=== PATIENT | female | born 1995 | race Caucasian/White ===

== ENCOUNTER 2016-12-04 14:46 | Emergency (ER) | payer OTHER ==
--- NOTE | 2016-12-04 15:42 | ED NURSING NOTES ---
Clinical Report - Nurses [facility] [address] [place] [address] 12/04/2016 14:48 Patient: ARIAN RAMESH TRIAGE Triage time 14:58. Acuity: LEVEL 4. Chief Complaint: LACERATION and (beer can). Alert. No acute distress. ( Pt. states she was trying to remove a beer cap with her radiology services manager and cut her finger.). SEPSIS SCREEN: Sepsis Screen. Negative (no infection suspected/documented). VONDA COMA SCORE: [place] Coma Scale: 15- eyes open spontaneously (4); best verbal response- oriented x 4 (5); best motor response- obeys commands (6). --14:59 Angie Parisi R.N. 14:57 12/04/16. BP: 139/90. HR: 96. RR: 16. O2 saturation: 100%. Temp: 98.3 F. Pain level now 0/10. --14:59 Angie Parisi R.N. Weight: 81.6 kg stated. Height/Length: 66 inches Per Patient. BMI: 29. --14:57 Angie Parisi R.N. Medications None. --14:59 Angie Parisi R.N. Allergies Penicillins. --14:59 Angie Parisi R.N. History Arrived by private vehicle. Historian: patient. Accompanied by friend. Primary physician (LENCHO Mantillaett). Location of injuries: right index finger. This occurred today (45 minutes ago). Treatment FINANCIAL AID COORDINATOR: None. PAST MEDICAL HX: Tetanus status: up-to-date. Immunizations: up-to-date. SOCIAL HX: Heavy tobacco smoker (cigarette)- 1 pack per day. Occasional alcohol use. No drug use. No infectious disease exposure. ABUSE ASSESSMENT: No report of abuse. NUTRITIONAL RISK ASSESSMENT: The nutritional risk assessment revealed no deficiencies. FUNCTIONAL ASSESSMENT: Functional assessment: no impairments noted. LEARNING NEEDS ASSESSMENT: The learning needs assessment revealed no barriers. --14:59 Angie Parisi R.N. PROBLEMS: Hypothyroidism. --14:59 Angie Parisi R.N. Interventions ID band on patient. Ambulatory. --14:59 Angie Parisi R.N. PHYSICAL ASSESSMENT Ambulatory to room. GENERAL / NEURO / PSYCH: Alert. Appears in no acute distress. SKIN: Skin is warm and dry. Single small laceration. --15:00 Angie Parisi R.N. NURSING PROGRESS NOTES Two patient identifiers checked. Call light placed in reach. Side rails up x 2. Bed placed in lowest position. Brakes of bed on. Patient ready for evaluation- chart flagged. --15:00 Angie aPrisi R.N. Wound cleansed with sterile saline and chlorhexidine. Applied clean dressing consisting of 4x4 gauze, following the application of antibiotic ointment (bacitracin). Secured with tape. --15:37 Edita Obrien. DISPOSITION / DISCHARGE 15:50. Condition at departure: improved. No learning barriers present. Discharge instructions provided and reviewed with the patient and family. Reviewed wound care instructions. Patient verbalized understanding. Written instructions provided in Japanese. The patient was discharged home and accompanied by family. She left the Emergency Department ambulatory and via private vehicle. Patient driving. Medication list reviewed and validated. --15:54 Kitty Ramirez R.N. 14:57 12/04/16. BP: 139/90. HR: 96. RR: 16. O2 saturation: 100%. Temp: 98.3 F. Pain level now 0/10. --15:54 Kitty Ramirez R.N. Locked/Released at 12/04/2016 15:54 by Kitty Ramirez R.N.
--- NOTE | 2016-12-04 15:42 | ED CLINICAL REPORT ---
Clinical Report - Physicians/Mid Levels [facility] [address] [place] [address] 12/04/2016 14:48 Patient: ARIAN RAMESH Time Seen: 14:54; upon arrival, initial patient contact, initial documentation, patient care assumed. Arrived- By private vehicle. Historian- patient. HISTORY OF PRESENT ILLNESS Chief Complaint: Injury to the right index finger. The [place] happened just [place] The patient sustained a laceration from a sharp edge. Patient is experiencing mild pain. Patient denies injury to the head or neck. No other injury. REVIEW OF SYSTEMS The patient sustained a laceration. No swelling, tingling, numbness, weakness or foreign body. All systems otherwise negative, except as recorded above. PAST HISTORY See nurses notes. PROBLEMS: Hypothyroidism. --14:59 Angie Parisi R.N. The patient's dominant hand is the right. Tetanus immunization status is up-to-date. SOCIAL HISTORY Heavy tobacco smoker. Occasional alcohol use. No drug use. No recent travel. Is a local resident. FAMILY HISTORY No significant family medical history. ADDITIONAL NOTES The nursing notes have been reviewed with agreement regarding the chief complaint, HPI, ROS, PMH and patient medications and allergies. PHYSICAL EXAM Vital Signs: 12/04/2016 14:57 BP: 139/90. HR: 96. RR: 16. O2 saturation: 100%. Temp: 98.3 F. Have been reviewed as normal and appear to be correct. Appearance: Alert. Oriented X3. No acute distress. Head: Head atraumatic. Eyes: Pupils equal, round and reactive to light. Eyes normal inspection. Respiratory: No respiratory distress. Skin: Skin warm and dry. Skin intact. Extremities: Hand injury present. Right index finger: mild tenderness and superficial 0.5 cm laceration of the dorsal aspect, PIP joint and middle phalanx. Neurovascular intact distally. No erythema, swelling, abrasion, ecchymosis or puncture wound. No foreign body or deformity. No limitation in movement. No subungual hematoma or amputation present. No wrist injury. Hand and wrist exam otherwise negative. Extremities otherwise negative. Neuro, Vascular and Tendons: Vascular status intact. Sensation intact. Motor intact. Tendon function intact. Neuro: Oriented X 3. No motor deficit. No sensory deficit. Note: isolated injury to finger. PROGRESS AND PROCEDURES Course of Care: 1525. reassessed wound after irrigation, no closure needed, superficial vshaped lac, 1/2cm. Patient counseled in person regarding the patient's stable condition and diagnosis. 15:42. Differential Diagnosis: Other possible considerations: finger lac, fb, skin avulsion, tendon injury. Above considerations are based on history and physical exam. Differential diagnosis was discussed with patient. Disposition: Discharged home in good and improved condition (15:42). Condition: good and stable. CLINICAL IMPRESSION Single superficial laceration to the right index finger.Treatment of laceration not delayed. No infection, foreign body present or right fingernail injury. INSTRUCTIONS Protect wound and keep wound area clean. Soak in warm soapy water twice daily. Apply neosporin twice daily. Warnings: GENERAL WARNINGS: Return or contact your physician immediately if your condition worsens or changes unexpectedly, if not improving as expected, or if other problems arise. Specifically return if problem worsens. Follow-up: Follow up with your doctor in about three days as needed and for wound check. Call for an appointment. Summary of care provided to patient. Understanding of the discharge instructions verbalized by patient. (Electronically signed by Alicia Guardado A.R.N.P. 12/04/2016 15:56)
--- NOTE | 2016-12-04 15:42 | ED NURSING NOTES ---
Clinical Report - Nurses [facility] [address] [place] [address] 12/04/2016 14:48 Patient: ARIAN RAMESH TRIAGE Triage time 14:58. Acuity: LEVEL 4. Chief Complaint: LACERATION and (beer can). Alert. No acute distress. ( Pt. states she was trying to remove a beer cap with her production specialist and cut her finger.). SEPSIS SCREEN: Sepsis Screen. Negative (no infection suspected/documented). VONDA COMA SCORE: [place] Coma Scale: 15- eyes open spontaneously (4); best verbal response- oriented x 4 (5); best motor response- obeys commands (6). --14:59 Angie Parisi R.N. 14:57 12/04/16. BP: 139/90. HR: 96. RR: 16. O2 saturation: 100%. Temp: 98.3 F. Pain level now 0/10. --14:59 Angie Parisi R.N. Weight: 81.6 kg stated. Height/Length: 66 inches Per Patient. BMI: 29. --14:57 Angie Parisi R.N. Medications None. --14:59 Angie Parisi R.N. Allergies Penicillins. --14:59 Angie Parisi R.N. History Arrived by private vehicle. Historian: patient. Accompanied by friend. Primary physician (LENCHO Mantillaett). Location of injuries: right index finger. This occurred today (45 minutes ago). Treatment BOX ANNEALER: None. PAST MEDICAL HX: Tetanus status: up-to-date. Immunizations: up-to-date. SOCIAL HX: Heavy tobacco smoker (cigarette)- 1 pack per day. Occasional alcohol use. No drug use. No infectious disease exposure. ABUSE ASSESSMENT: No report of abuse. NUTRITIONAL RISK ASSESSMENT: The nutritional risk assessment revealed no deficiencies. FUNCTIONAL ASSESSMENT: Functional assessment: no impairments noted. LEARNING NEEDS ASSESSMENT: The learning needs assessment revealed no barriers. --14:59 Angie Parisi R.N. PROBLEMS: Hypothyroidism. --14:59 Angie Parisi R.N. Interventions ID band on patient. Ambulatory. --14:59 Angie Parisi R.N. PHYSICAL ASSESSMENT Ambulatory to room. GENERAL / NEURO / PSYCH: Alert. Appears in no acute distress. SKIN: Skin is warm and dry. Single small laceration. --15:00 Angie Parisi R.N. NURSING PROGRESS NOTES Two patient identifiers checked. Call light placed in reach. Side rails up x 2. Bed placed in lowest position. Brakes of bed on. Patient ready for evaluation- chart flagged. --15:00 Angie Parisi R.N. Wound cleansed with sterile saline and chlorhexidine. Applied clean dressing consisting of 4x4 gauze, following the application of antibiotic ointment (bacitracin). Secured with tape. --15:37 Edita Obrien. DISPOSITION / DISCHARGE 15:50. Condition at departure: improved. No learning barriers present. Discharge instructions provided and reviewed with the patient and family. Reviewed wound care instructions. Patient verbalized understanding. Written instructions provided in [place]ic. The patient was discharged home and accompanied by family. She left the Emergency Department ambulatory and via private vehicle. Patient driving. Medication list reviewed and validated. --15:54 Kitty Ramirez R.N. 14:57 12/04/16. BP: 139/90. HR: 96. RR: 16. O2 saturation: 100%. Temp: 98.3 F. Pain level now 0/10. --15:54 Kitty Ramirez R.N. Locked/Released at 12/04/2016 15:54 by Kitty Ramirez R.N.
--- NOTE | 2016-12-04 15:56 | ED MED RECONCILIATION SUMMARY ---
Patient: ARIAN RAMESH Medication Reconciliation Report [facility] VisitID: [id number] [address] [place] [address] 21y, F Registration Date/Time: 12/04/2016 Weight: 81.6 kg Height/Length: 66 in. BMI: 29.0 ALLERGIES: Penicillins The patient's Home Medications are listed below: NONE. The source(s) of the original Home Medication information: Not obtained. The following Medications were given to the patient in the Emergency Department: None. The following Medications were prescribed to the patient: None.
--- NOTE | 2016-12-04 15:56 | ED MAR SUMMARY ---
..... Medication Administration Record [facility] [address] [place], [place] [id number] Patient: ARIAN RAMESH Visit ID: [id number] 21y, F Weight: 81.6 kg Height/Length: 66 in BMI: 29 ALLERGIES: Penicillins
--- NOTE | 2016-12-04 15:56 | ED MAR SUMMARY ---
..... Medication Administration Record [facility] [address] [place], [place] [id number] Patient: ARIAN RAMESH Visit ID: [id number] 21y, F Weight: 81.6 kg Height/Length: 66 in BMI: 29 ALLERGIES: Penicillins
--- NOTE | 2016-12-04 15:56 | ED MED RECONCILIATION SUMMARY ---
Patient: ARIAN RAMESH Medication Reconciliation Report [facility] VisitID: [id number] [address] [place] [address] 21y, F Registration Date/Time: 12/04/2016 Weight: 81.6 kg Height/Length: 66 in. BMI: 29.0 ALLERGIES: Penicillins The patient's Home Medications are listed below: NONE. The source(s) of the original Home Medication information: Not obtained. The following Medications were given to the patient in the Emergency Department: None. The following Medications were prescribed to the patient: None.
--- NOTE | 2016-12-04 15:56 | ED DISCHARGE INSTRUCTIONS ---
Patient: ARIAN RAMESH General Instructions [facility] VisitID: [id number] [place] [address] 21y, F Registration Date/Time: 12/04/2016 Single superficial laceration to the right index finger.Treatment of laceration not delayed. No infection, foreign body present or right fingernail injury. INSTRUCTIONS Protect wound and keep wound area clean. Soak in warm soapy water twice daily. Apply neosporin twice daily. Warnings: GENERAL WARNINGS: Return or contact your physician immediately if your condition worsens or changes unexpectedly, if not improving as expected, or if other problems arise. Specifically return if problem worsens. Follow-up: Follow up with your doctor in about three days as needed and for wound check. Call for an appointment. Summary of care provided to patient. Understanding of the discharge instructions verbalized by patient. ADDITIONAL INFORMATION Laceration (All Closures) Alaceration is a cut through the skin. This will usually require stitches (sutures) or giuliana if it is deep. Minor cuts may be treated with a surgical tape closure orskin glue. Home care The following guidelines will help you care for your laceration at home: Extremity, face, or trunk wounds Keep the wound clean and dry. If a bandage was applied and it becomes wet or dirty, replace it. Otherwise, leave it in place for the first 24 hours. If stitches or giuliana were used, clean the wound daily. After removing the bandage, wash the area with soap and water. Use a wet cotton swab to loosen and remove any blood or crust that forms. The doctor may prescribe an antibiotic cream or ointment to prevent infection. Do not stop taking this medication until you have finished the prescribed course or the doctor tells you to stop. The doctor may also prescribe medications for pain. Follow the doctors instructions for taking these medications. You may remove the bandage to shower as usual after the first 24 hours, but do not soak the area in water (no swimming) until the stitches or giuliana are removed. If surgical tape was used, keep the area clean and dry. If it becomes wet, blot it dry with a towel. If skin glue was used, do not scratch, rub, or pick at the adhesive film. Do not place tape directly over the film. Do not apply liquid, ointment, or creams to the wound while the film is in place. Do not clean the wound with peroxide and do not apply ointments. Avoid activities that cause heavy sweating until the film has fallen off. Protect the wound from prolonged exposure to sunlight or tanning lamps. You may shower as usual but do not soak the wound in water (no baths or swimming). The film will fall off by itself in 510 days. Scalp wounds During the first two days, you may carefully rinse your hair in the shower to remove blood, glass or dirt particles. After two days, you may shower and shampoo your hair normally. Do not soak your scalp in the tub or go swimming until the stitches or giuliana have been removed. Talk with your doctor before applying any antibiotic ointment to the wound. Mouth wounds Eat soft foods to reduce pain. If the cut is inside of your mouth, clean by rinsing after each meal and at bedtime with a mixture of equal parts water and hydrogen peroxide (do not swallow!). Or, you can use a cotton swab to directly apply hydrogen peroxide onto the cut. Mouth wounds can be painful when eating. You may use an [id number] local numbing solution for pain relief. If this is not available, you may use any numbing solution for teething babies. You may apply this directly to the sores with a cotton-tip swab or with your finger. Follow-up care Follow up with your health care provider. Most skin wounds heal within ten days. Mouth and facial wounds heal within five days. However, even with proper treatment, a wound infection may sometimes occur. Therefore, you should check the wound daily for signs of infection listed below. Stitches should be removed from the face within five days; stitches and giuliana should be removed from other parts of the body within 714 days. If dissolving stitches were used in the mouth, these will fall out or dissolve without the need for removal. If tape closures were used, remove them yourself if they have not fallen off after 7 days. Ifskin glue was used, the film will fall off by itself in 510 days. When to seek medical care Get prompt medical attention if any of these occur: Bleeding not controlled by direct pressure Signs of infection, including increasing pain in the wound, increasing wound redness or swelling, or pus coming from the wound Fever of 100.4F (38C) or higher, or as directed by your health care provider Stitches or giuliana come apart or fall out or surgical tape falls off before 7 days Wound edges re-open Laceration, Extremity (Sutures, [place], Or Tape) A laceration is a cut through the skin. This will usually require stitches (sutures) or giuliana if it is deep. Minor cuts may be treated with surgical tape closures. Home care The following guidelines will help you care for your laceration at home: Keep the wound clean and dry. If a bandage was applied and it becomes wet or dirty, replace it. Otherwise, leave it in place for the first 24 hours, then change it once a day or as directed. If stitches or giuliana were used, clean the wound daily: After removing the bandage, wash the area with soap and water. Use a wet cotton swab to loosen and remove any blood or crust that forms. After cleaning, keep the wound clean and dry. Talk with your doctor before applying any antibiotic ointment to the wound. Reapply the bandage. You may remove the bandage to shower as usual after the first 24 hours, but do not soak the area in water (no swimming) until the stitches or giuliana are removed. If surgical tape closures were used, keep the area clean and dry. If it becomes wet, blot it dry with a towel. The doctor may prescribe an antibiotic cream or ointment to prevent infection. Do not stop taking this medication until you have finished the prescribed course or the doctor tells you to stop. The doctor may also prescribe medications for pain. Follow the doctors instructions for taking these medications. If you have chronic liver or kidney disease or ever had a stomach ulcer or GI bleeding, talk with your doctor before using these medicines. Follow-up care Follow up with your health care provider. Most skin wounds heal within ten days. However, an infection may sometimes occur despite proper treatment. Therefore, check the wound daily for the signs of infection listed below. Stitches and giuliana should be removed within 714 days. If surgical tape closures were used, you may remove them after 10 days, if they have not fallen off by then. Notify your doctor if you notice persistent numbness or weakness in the injured extremity. (Note:A radiologist will review any X-rays that were taken. We will notify you of any new findings that may affect your care.) When to seek medical care Get prompt medical attention if any of these occur: Increasing pain in the wound Redness, swelling, or pus coming from the wound Fever of 100.4F (38C) or higher, or as directed by your health care provider If stitches or giuliana come apart or fall out before your next appointment If the surgical tape closures fall off within seven days, or the wound edges re-open Bleeding not controlled by direct pressure You have been given the following additional information: Laceration, All Laceration, Extrem (Suture, Staple, Or Tape) (Electronically signed by Alicia Guardado A.R.N.PTrish 12/04/2016 15:56)
== END 2016-12-04 15:50 | disposition home or self-care (01) ==
LOC: ED SRH 14:46
DX: S61.210A Laceration without foreign body of right index finger without damage to nail, initial encounter (principal); W26.8XXA Contact with other sharp object(s), not elsewhere classified, initial encounter; Y92.832 Beach as the place of occurrence of the external cause